=== PATIENT | female | born 1960 | race African-American/Black ===

== ENCOUNTER → 2017-02-26 | Outpatient (CLI) | payer OTHER ==
[~2017-02-26] MED LIST: AMLO5TAB PO; ASPIR 8181 MG PO; ASPIRIN LOW DOS81 MG PO; BLOOD PRESSURE PO; CARVEDILOL3.125 M1 PO; CRESTOR20 MG PO; HABITROL21 MG/24 H TD; LIPITOR40 MG PO; LISINOPRIL10 MG PO; LORTAB 5/500 501 TAB PO; NITROGLYCERIN0.4 MG SL; PHENERGAN 25MG.25 M1 PO; PLAVIX 75MG TAB75 MG PO; PLAVIX75 MG PO; RANEXA500 M1 PO; TYLENOL W/CODEI1 TA2 PO; VICODIN 5/500 T1 TAB PO; ZOFRAN ODT4 MG PO; [UNRECOGNIZED DRUG - REMARK] PO
--- NOTE | 2017-03-03 08:04 | RADIOLOGY REPORT PS360 ---
DIG MAMM-SCREEN [facility] W/CAD CAD Screening COMPARISON: Analog mammograms 08/27/2008 and digital mammograms 03/15/2014 INDICATION: There is a history of breast cancer in the patient's paternal grandmother. TECHNIQUE: Standard CC and MLO images were obtained. R2 CAD reviewed. FINDINGS: Moderate diffuse fibroglandular densities are seen in both breast slightly more prominent upper outer quadrant right breast and this was noted previously as well. There is no suspicious lesion in either breast and no suspicious microcalcifications. There are moderate sized fatty replaced nodes in both axilla. IMPRESSION: Fibrofatty parenchyma with no suspicious lesion seen recommend yearly follow-up BI-RADS CATEGORY: 1_Negative RECOMMENDED FOLLOWUP: 12M 12 MONTH FOLLOW-UP (A letter has been sent to the patient regarding results of the study.)
== END ==
LOC: RAD 16:09
DX: Z12.31 Encounter for screening mammogram for malignant neoplasm of breast (principal)
CPT/HCPCS: G0202

== ENCOUNTER → 2017-04-13 | Outpatient (CLI) | payer OTHER ==
--- NOTE | 2017-04-13 14:32 | RADIOLOGY REPORT PS360 ---
ARTERIAL/EFH-RJVYSPOBITT-CBT CLAUDICATION, bilateral leg pain, rest pain, claudication, peripheral vascular disease with stents, current smoker ORDERING PHYSICIAN: Todd Guardado MD PATIENT AGE: 56 years TECHNIQUE: Segmental pressures obtained of both right and left leg. These are compared to brachial blood pressure to yield index at each level sampled including summary FOREIGN. The data sheets from the procedure are available in PACS FINDINGS Rest study only performed today No prior studies available for comparison. Blood pressures reported are in millimeters mercury. RIGHT LEG FOREIGN = 0.8. Brachial BP: 149 Thigh BP: 118 Calf BP: 114 Ankle PT: Not obtainable Ankle DP : 117 Digit =71 LEFT LEG FOREIGN = 0.8 Brachial BPD: 147 Thigh BP: 120 Calf BP: 108 Ankle PT:125 Ankle DP: 113 Digit = 94 Pulses and waveforms: There are no posterior tibial pulses on the right. Diminished posterior tibial pulses on the left IMPRESSION: Mildly depressed ABIs on both sides indicating mild atherosclerotic disease. Absent right posterior tibial pulse and diminished left posterior tibial pulses
== END ==
LOC: RT 10:53
DX: I70.213 Atherosclerosis of native arteries of extremities with intermittent claudication, bilateral legs (principal); I73.9 Peripheral vascular disease, unspecified

== ENCOUNTER → 2017-05-06 | Outpatient (CLI) | payer OTHER ==
[2017-05-06 09:40] LABS: BUN 8 mg/dL (7-18)
[2017-05-06 09:45] LABS: GFR (ESTIMATED) 86 ML/MIN (59-)
--- NOTE | 2017-05-08 05:46 | RADIOLOGY REPORT PS360 ---
CTA-ABD AORTA [facility] ILEOFEM RO CLINICAL INDICATION: ATHERSCLEROSIS, OF BOTH LEGS WITH INTERMITTENT CLAUDICATION, abnormal duplex exam ORDERING PHYSICIAN: Todd Guardado MD PATIENT AGE: 56 years COMPARISON: Arterial ultrasound of 04/13/2017 TECHNIQUE: Axial images are obtained of the abdomen, pelvis, and lower extremities following the bolus administration of 120 mL of Isovue-[id number]. Sagittal, coronal, and MIP images are reviewed FINDINGS: Vascular findings: There are atheromatous changes of the distal abdominal aorta. There is one right renal artery and there are 2 left renal arteries without significant stenosis. 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 The SMA has an unremarkable appearance. The RUDOLPH is patent. No evidence of aortic aneurysm. Moderate atheromatous changes involving the distal abdominal aorta with 40-50% narrowing of the distal aspect of the abdominal aorta at the bifurcation. Eccentric plaque is present at the bifurcation causing high-grade stenosis of the ostium of the left common iliac artery of approximately 60%. There is some ulcerated plaque in this region as well. Lung segment narrowing is present in the proximal left common iliac. There is a left common iliac artery stent present which is patent which extends just past the common iliac bifurcation and also involves proximal external iliac on the left. Mild atheromatous changes are present just distal to the stent on the left. Mild atheromatous changes involving the distal left external iliac with 40% stenosis. There is calcific plaque in the proximal right internal iliac with 40% stenosis proximally. Diffuse atheromatous changes involve the right external iliac artery especially small with scattered areas of at least 50% stenosis. Right lower extremity runoff: Scattered atheromatous changes involve the common femoral and superficial femoral artery on the right and 40% loss segment stenosis of the mid aspect of the right SFA. Mild atheromatous changes involving the right popliteal artery. There is three-vessel runoff in the proximal calf. The dorsalis pedis and peroneal are patent to the ankle. The posterior tibia is not visualized past the mid calf. Left lower extremity: The common femoral and proximal superficial femoral are unremarkable. Atheromatous changes involve the mid aspect of the left SFA with long segment high-grade stenosis with at least one small segment area of 90% stenosis involving the mid SFA. Long segment stenosis is 60%.. There is 40% stenosis involving the mid aspect of the popliteal artery on the left. There is two-vessel runoff to the ankle with the anterior tib and peroneal artery patent to the ankle. Posterior tibial artery is not visualized past the mid calf. Nonvascular findings: The liver, spleen, adrenal glands, pancreas, and kidneys have an unremarkable appearance. There has been prior cholecystectomy. No obvious ductal dilatation. No acute findings are evident. IMPRESSION: Abnormal CTA of the abdomen and pelvis with bilateral lower extremity runoff. There are multiple abnormalities as described above. The most significant flow limiting abnormalities include: 60-70% stenosis of the ostium of the left common iliac Long segment stenosis of the mid SFA on the left ranging from 50-90% Long segment stenosis of the mid aspect of the right SFA of 40-50% 75% stenosis of the ostium of the celiac artery Please see above for details
== END ==
LOC: RAD 09:17
PROVIDERS: Family Medicine
DX: I70.213 Atherosclerosis of native arteries of extremities with intermittent claudication, bilateral legs (principal)
CPT/HCPCS: Q9967